=== PATIENT | female | born 1955 | race Caucasian/White ===

== ENCOUNTER 2017-02-04 08:09 | Day surgery (SDC) | payer OTHER ==
[~2017-02-04 08:09] MED LIST: CHONDR SU A NA/HYALUR INTRAOC KIT (SURGICARE) ONE; EPINEPHRINE INJ/PF 1 MG/1 ML AMPULE ONE; KETOROLAC TROMETHAMINE 0.45% 4 DROP/0.4 ML DROPERETTE OS PRN; LIDOCAINE 1% INJ-PF (10 MG/ML) 30 ML SDV ONE
[2017-02-04] MEDS: TROPICAMIDE 1% OPH SOLN 3 ML OS PRN ×3 (08:35→08:47)
[2017-02-04] MEDS: TETRACAINE HCL 0.5% OPH SOLN 2 ML OS PRN ×3 (08:35→09:09)
[2017-02-04] MEDS: CYCLOPENTOLATE 0.2%/PHENYLEPHRINE 1% OPH SOLN 2 ML OS PRN ×3 (08:35→08:47)
[2017-02-04] MEDS: BESIFLOXACIN HCL 0.6% OPH SUSP 5 ML BOTTLE OS PRN ×3 (08:35→09:31)
[2017-02-04] MEDS ORDERED: MIDAZOLAM 2 MG/2 ML INJ ONE (08:48)
[2017-02-04] MEDS ORDERED: FENTANYL CITRATE INJ/PF 100 MCG/2 ML AMPUL ONE (08:48)
[2017-02-04] MEDS ORDERED: EPINEPHRINE INJ/PF 1 MG/1 ML AMPULE ONE (11:35)
[2017-02-04] MEDS ORDERED: LIDOCAINE 1% INJ-PF (10 MG/ML) 30 ML SDV ONE (11:35)
[2017-02-04] MEDS ORDERED: CHONDR SU A NA/HYALUR INTRAOC KIT (SURGICARE) ONE (11:35)
--- NOTE | 2017-02-05 07:53 | [facility] OPERATIVE REPORT E ---
[facility] Operative Report NAME: RADHA KEEN AGE: 61Y DATE OF SURGERY: 02/04/2017 ROOM: PREOPERATIVE DIAGNOSIS: CATARACT, LEFT EYE. POSTOPERATIVE DIAGNOSIS: CATARACT, LEFT EYE. OPERATION: Cataract extraction with ReSTOR intraocular lens implant of the left eye. SURGEON: CHAZ CIFUENTES M.D. ANESTHESIA: Topical. PROCEDURE: After obtaining appropriate consent, the patient's left eye was prepped and draped in sterile fashion as well as the surgeon in a sterile manner and cataract surgery was started. First a paracentesis blade was used to make a small side-port incision. Viscoelastic was used to inflate the anterior chamber. Next a 2.4 mm incision was made with the paracentesis blade. A continuous capsulorrhexis incision was made using a cystotome and Utrata forceps. Following this hydrodissection was carried out to make the lens fully loose and mobile and it was rotated 90 degrees. Following this, a uljfeb-wyz-osxkrea technique was used to phacoemulsify the lens with a CDE of 3.69. The remaining cortex was removed with irrigation/aspiration. Provisc was instilled into the capsular bag to inflate the bag. A SN6AD1, 22.0 diopter lens was placed. The remaining viscoelastic material was removed with irrigation/aspiration. Following this, a 10-0 Nylon suture was used to close the incision and it was found to be watertight. Vigamox was instilled in the eye and a protective shield was placed over the eye. The patient returned to the postoperative recovery in stable condition. DICTATING PHYSICIAN: CHAZ CIFUENTES M.D. [id number] [id number] PHY#: [id number] ID: [id number] JOB#: [id number] ACCT: [id number] cc:CHAZ CIFUENTES M.D. >
--- NOTE | 2017-02-05 07:58 | [facility] DISCHARGE SUMMARY E ---
[facility] Discharge Summary NAME: RADHA KEEN AGE: 61Y ADMITTED: 02/04/2017 DISCHARGED: 02/04/2017 HOSPITAL COURSE This is a 61-year-old female who underwent cataract extraction with ReSTOR IOL of the left eye. DIAGNOSIS: CATARACT, LEFT EYE. INDICATIONS: She underwent surgery because she is having difficulty with glare at night, and difficulty seeing words on television. DISCHARGE INSTRUCTIONS: She is to be on a regular diet; no bending at her waist; no heavy lifting; She is to use Besivance, Ilevro and Durezol at 3:00 p.m. and 8:00 p.m.; and, sleep with a rigid shield and I will see her for her 1-day postoperative tomorrow. DICTATING PHYSICIAN: CHAZ CIFUENTES M.D. 1265M [id number] PHY#: [id number] ID: [id number] JOB#: [id number] ACCT: [id number] cc:CHAZ CIFUENTES M.D. >
== END 2017-02-04 10:30 | disposition home or self-care (01) ==
LOC: SC 08:09
PROVIDERS: ATTEND Internal Medicine
DX: H25.13 Age-related nuclear cataract, bilateral (principal); H01.002 Unspecified blepharitis right lower eyelid; H01.005 Unspecified blepharitis left lower eyelid; H04.123 Dry eye syndrome of bilateral lacrimal glands; H10.45 Other chronic allergic conjunctivitis; I10 Essential (primary) hypertension; E78.00 Pure hypercholesterolemia, unspecified; Z79.899 Other long term (current) drug therapy; Z88.3 Allergy status to other anti-infective agents
CPT/HCPCS: 66984; V2788; J2250; J3490 ×2; J0171; J3010; 142

== ENCOUNTER 2017-03-04 11:05 | Day surgery (SDC) | payer OTHER ==
[~2017-03-04 11:05] MED LIST changes: +KETOROLAC TROMETHAMINE 0.45% 4 DROP/0.4 ML DROPERETTE OD PRN; -KETOROLAC TROMETHAMINE 0.45% 4 DROP/0.4 ML DROPERETTE OS PRN
[2017-03-04] MEDS ORDERED: MIDAZOLAM 2 MG/2 ML INJ ONE ×2 (11:18)
[2017-03-04] MEDS: CYCLOPENTOLATE 0.2%/PHENYLEPHRINE 1% OPH SOLN 2 ML OD PRN ×3 (11:21→11:37)
[2017-03-04] MEDS: TROPICAMIDE 1% OPH SOLN 3 ML OD PRN ×3 (11:21→11:36)
[2017-03-04] MEDS: BESIFLOXACIN HCL 0.6% OPH SUSP 5 ML BOTTLE OD PRN ×3 (11:22→12:05)
[2017-03-04] MEDS: TETRACAINE HCL 0.5% OPH SOLN 2 ML OD PRN ×3 (11:23→11:40)
--- NOTE | 2017-03-04 20:33 | [facility] OPERATIVE REPORT E ---
[facility] Operative Report NAME: RADHA KEEN AGE: 61Y DATE OF SURGERY: 03/04/2017 ROOM: PREOPERATIVE DIAGNOSIS: CATARACT, RIGHT EYE. POSTOPERATIVE DIAGNOSIS: CATARACT, RIGHT EYE. OPERATION: Cataract extraction with ReSTOR IOL. SURGEON: CHAZ CIFUENTES M.D. ANESTHESIA: Topical. COMPLICATIONS: None. PROCEDURE: After obtaining appropriate consent, the patient's right eye was prepped and draped in sterile fashion as well as the surgeon in a sterile manner and cataract surgery was started. First a paracentesis blade was used to make a small side-port incision. Viscoelastic was used to inflate the anterior chamber. Next a 2.4 mm incision was made with the paracentesis blade. A continuous capsulorrhexis incision was made using a cystotome and Utrata forceps. Following this hydrodissection was carried out to make the lens fully loose and mobile and it was rotated 90 degrees. Following this, a mjnkip-biy-vtdaaxv technique was used to phacoemulsify the lens with a CDE of 8.62. The remaining cortex was removed with irrigation/aspiration. Provisc was instilled into the capsular bag to inflate the bag. A SN6AD1, 20.5 diopter lens was placed. The remaining viscoelastic material was removed with irrigation/aspiration. Following this, a 10-0 nylon suture was used to close the incision and it was found to be watertight. Vigamox was instilled in the eye and a protective shield was placed over the eye. The patient returned to the postoperative recovery in stable condition. DICTATING PHYSICIAN: CHAZ CIFUENTES M.D. 1953M [id number] PHY#: [id number] ID: [id number] JOB#: [id number] ACCT: [id number] cc:CHAZ CIFUENTES M.D. >
--- NOTE | 2017-03-04 20:33 | DISCHARGE SUMMARY E ---
Discharge Summary NAME: RADHA KEEN : 1955 AGE: 61Y ADMITTED: 03/04/2017 DISCHARGED: This is a 61-year-old female who underwent cataract extraction of the right eye. DIAGNOSIS: Cataract, right eye. She underwent surgery because she felt unbalance between both eyes. She had a ReSTOR IOL inserted. DISCHARGE INSTRUCTIONS: She should be on a regular diet. No bending at her waist, no heavy lifting. She is to use Besivance, Ilevro, and Durezol at 3:00 p.m. and 8:00 p.m., and sleep with a rigid shield. I will see her for her one day postoperative tomorrow. DICTATING PHYSICIAN: CHAZ CIFUENTES M.D. 1953M 2028 [facility]#: [id number] 2012 ID: [id number] JOB#: [id number] ACCT: [id number] cc:CHAZ CIFUENTES M.D. >
== END 2017-03-04 12:43 | disposition home or self-care (01) ==
LOC: SC 11:05
PROVIDERS: ATTEND Internal Medicine
PROC: 08RJ3JZ Replacement of Right Lens with Synthetic Substitute, Percutaneous Approach (ICD-10-PCS; principal; 2017-03-04 12:30)
DX: H25.11 Age-related nuclear cataract, right eye (principal); Z96.1 Presence of intraocular lens; I10 Essential (primary) hypertension; K21.9 Gastro-esophageal reflux disease without esophagitis; Z79.899 Other long term (current) drug therapy; Z88.8 Allergy status to other drugs, medicaments and biological substances
CPT/HCPCS: 66984; V2788; J2250; J3490 ×2; J0171; 142